=== PATIENT | female | born 1970 | race American Indian/Alaskan Native ===

== ENCOUNTER 2018-03-20 08:07 | Emergency (ER) | payer MEDICAID ==
[2018-03-20 08:19] VITALS: BMI 23.2
[2018-03-20 08:20] VITALS: RESP 18
--- NOTE | 2018-03-20 08:42 | ED PDOC ---
Arrival/HPI - General Chief Complaint: Chest Pain Time Seen by Provider: 03/20/18 08:08 Historian: Patient - History of Present Illness Narrative History of Present Illness (Text): 03/20/18 08:39 Patient is a 48 yo female, past medical history of hypertension, asthma, smoking , "enlarged heart", presents to the Emergency Department complaining of "cold" for "one month" which she reports is sensation of cough, congestion and shortness of breath. States for two weeks she has been experiencing left sided back and chest pain, daily. Denies rash. Denies urinary symptoms. States pain is "like a charley horse" and worse with deep breaths. Also states she feels short of breath with any exertion over the past several months. Denies leg pain or swelling. Denies hemoptysis. Denies nausea or vomiting. Denies palpitations. Denies lightheadedness or dizziness. Time/Duration: > week Past Medical History - Infectious Disease Hx of Infectious Diseases: None - Cardiac Hx Heart Murmur: Yes Hx Hypertension: Yes Hx Mitral Valve Prolapse: Yes - Pulmonary Hx Asthma: Yes - Psychiatric Hx Substance Use: No - Surgical History Hx Dilation and Curettage: Yes (x2) Hx Tubal Ligation: Yes Family/Social History Family/Social History: Unknown Family HX Smoking Status: Current Some Days Smoker Hx Alcohol Use: No Hx Substance Use: No Allergies/Home Meds Allergies/Adverse Reactions: Allergies No Known Allergies Allergy (Unverified 03/20/18 08:36) Review of Systems - Review of Systems Constitutional: Fatigue. absent: Fevers Eyes: absent: Vision Changes ENT: absent: Hearing Changes Respiratory: SOB, Cough, Sputum, Wheezing Cardiovascular: Chest Pain, FUCHS. absent: Palpitations, Edema, Calf Pain, Orthopnea Gastrointestinal: absent: Abdominal Pain, Nausea, Vomiting Genitourinary Female: absent: Dysuria, Frequency Musculoskeletal: Back Pain. absent: Neck Pain Skin: absent: Rash Neurological: absent: Headache, Dizziness, Focal Weakness Endocrine: absent: Polyuria Hemo/Lymphatic: absent: Easy Bleeding Psychiatric: absent: Depression Physical Exam Vital Signs Reviewed: Yes Vital Signs Temp Pulse Resp BP Pulse Ox 03/20/18 12:26 98.1 F 53 L 18 160/98 H 98 03/20/18 12:25 98.1 F 53 L 18 160/98 H 98 03/20/18 11:45 53 L 18 163/105 H 100 03/20/18 10:18 53 L 18 174/115 H 100 03/20/18 09:06 55 L 189/119 H 03/20/18 08:19 98.4 F 79 18 189/119 H 100 Temperature: Afebrile Blood Pressure: Hypertensive Appearance: Positive for: Well-Appearing, Uncomfortable Pain Distress: Mild Mental Status: Positive for: Alert and Oriented X 3 - Systems Exam Head: Present: Atraumatic Pupils: Present: PERRL Extroacular Muscles: Present: EOMI Mouth: Present: Moist Mucous Membranes Pharnyx: No: ERYTHEMA Neck: Present: Normal Range of Motion. No: Meningeal Signs Respiratory/Chest: Present: Clear to Auscultation, Tender to Palpation. No: Respiratory Distress Cardiovascular: Present: Regular Rate and Rhythm, Murmurs Abdomen: No: Tenderness, Distention Back: Present: Normal Inspection, Paraspinal Tenderness. No: CVA Tenderness Upper Extremity: Present: NORMAL PULSES, Other (pain to dorsum of right hand, no deformity, no wrist pain, FROM pip/dip/mcp joint and wrist). No: Cyanosis, Edema Skin: Present: Warm Psychiatric: Present: Alert, Normal Insight, Normal Concentration Medical Decision Making ED Course and Treatment: 03/20/18 08:46 Patient on initial exam states she has had pain for past 2 weeks. On initial exam, NO wheezing noted, no hypoxia, although hypertensive. She has pain with breathing for several weeks. Denies OCP. Denies calf pain. Denies immobilization or prolonged travel. Ddx asthma, pneumonia, cardiomyopathy, pulmonary embolism, cad, htn. 03/20/18 09:29 Chest X-ray reviewed by radiologist, shows: FINDINGS: LUNGS: No active pulmonary disease. PLEURA: No significant pleural effusion identified, no pneumothorax apparent. CARDIOVASCULAR: Normal. OSSEOUS STRUCTURES: Rightward convexity/ scoliosis VISUALIZED UPPER ABDOMEN: Normal. OTHER FINDINGS: None. IMPRESSION: No active disease. CT ordered as patient with complaints of flank pain, back pain. 03/20/18 10:29 CT of Abdomen/Pelvis reviewed by radiologist, shows: FINDINGS: LOWER THORAX: Unremarkable. LIVER: Unremarkable. No gross lesion or ductal dilatation. GALLBLADDER AND BILE DUCTS: Unremarkable. PANCREAS: Unremarkable. No gross lesion or ductal dilatation. SPLEEN: Unremarkable. ADRENALS: Adrenal limbs appear somewhat thickened-nonspecific mild hyperplasia compatible with this. No suspect adrenal mass appreciated. The paucity of internal body fat limits optimal evaluation. KIDNEYS AND URETERS: . No hydronephrosis. The paucity of internal body fat limits optimal evaluation. No obstructing renal or significantly obstructing ureteral calculus noted. However there are multiple bilateral hemipelvic JS occasions present that are also close proximity with coursing ureters. These ureters do not appear significantly dilated The right retroperitoneal 3 mm calcification may be a calcified gonadal vein. However its relationship to the ureter is problematic. VASCULATURE: Multiple phleboliths present No aortic aneurysm. BOWEL: Stool retention. No obstruction. No gross mural thickening. APPENDIX: What appears to be the appendix is unremarkable. PERITONEUM: Unremarkable. No free fluid. No free air. LYMPH NODES: Unremarkable. No enlarged lymph nodes. BLADDER: Unremarkable. REPRODUCTIVE: Uterus appears prominent. This bilateral adnexal hypodensity more pronounced on the left side. This probably in this age group relates to left ovarian cyst. For this consider pelvic ultrasound [facility] abdominal/transvaginal BONES: No acute fracture. OTHER FINDINGS: None. IMPRESSION: Limited exam given the paucity of internal body fat. No hydronephrosis. No gross hydroureter. Multiple calcifications are present vast majority of these are bleed likely phleboliths. However given their close proximity with courses of the ureters - not of obstructing ureteral calculi cannot be excluded. That on the right is probably a calcified gonadal vein - the clinical history states left flank pain. There are bilateral hemipelvic calcifications present - again these are compatible with phleboliths -however tiny nonobstructing ureteral calculi cannot be excluded given their proximity with the expected courses of the ureters. In the left adnexa there is hypodensity probably relating to left ovarian adnexal cyst perhaps physiologic -this could be relating to patient's pain [facility] clinical correlation is essential. Consider transabdominal transvaginal macro ultrasound for further evaluation Comments: If there still look high concern for urolithiasis, consider follow-up is intravenous enhanced CT urogram. CXR unremarkable. Xray with no acute fracture. Ddimer unremarkable. No wheezing on re-evaluation. I explained to patient limitations of labs and imaging studies. I have recommended admission to the hospital based on history of hypertension, abnormal EKG, and complaints of sob. I explained to patient risks that include but not limited to cardiac disease, cardiomyopathy, lung disease, and stressed not limited to this. She states she has a court date tomorrow and wishes to go home. Risks reviewed with patient in laymen's terms. She expresses understanding of recommendation for admission as well as recommendation for further monitoring. 03/20/18 12:00 The patient declines to have further medical evaluation and treatment and wishes to leave the Emergency Department. This action is against my medical advice to the patient, and with informed refusal. The patient was told that evaluation and treatment are necessary and a full explanation of the rationale was given. The risks of leaving were explained to the patient and include, but are not limited to, worsening of known or currently unknown conditions, permanent disability and from undiagnosed or untreated conditions The patient has the capacity to make this informed decision and understands the clinical situation and my explanation of the risks of leaving. The patient voluntarily accepts these risks, and a signed AMA form documenting our conversation was obtained. The patient was given the opportunity to ask questions and reconsider. The patient was encouraged to return to the Emergency Department at any time for further care. 03/20/18 21:47 - Lab Interpretations Lab Results: 03/20/18 08:25 03/20/18 08:25 Lab Results 03/20/18 09:14: POC Glucose (mg/dL) 76 03/20/18 08:37: Influenza Typ A,B (EIA) Negative for flu a/b 03/20/18 08:25: Urine Color Yellow, Urine Appearance Clear, Urine pH 6.0, Ur Specific [place] 1.025, Urine Protein Negative, Urine Glucose (UA) Negative, Urine Ketones Negative, Urine Blood Negative, Urine Nitrate Negative, Urine Bilirubin Negative, Urine Urobilinogen 0.2, Ur Leukocyte Esterase Negative, Urine HCG, Qual Negative 03/20/18 08:25: Sodium 144, Potassium 4.2, Chloride 109 H, Carbon Dioxide 22, Anion Gap 17, BUN 10, Creatinine 0.9, Est GFR ( Amer) > 60, Est GFR (Non- Af Amer) > 60, Random Glucose 82, Calcium 9.8, Total Bilirubin 0.6, AST 24, ALT 26, Alkaline Phosphatase 64, Lactate Dehydrogenase 389, Total Creatine Kinase 114, Troponin I < 0.01, NT-Pro-B Natriuret Pep 135, Total Protein 7.5, Albumin 4.5, Globulin 3.0, Albumin/Globulin Ratio 1.5 03/20/18 08:25: PT 11.2, INR 0.97, APTT 27.8, D-Dimer, Quantitative < 200 03/20/18 08:25: WBC 6.0, RBC 5.09, Hgb 15.6, Hct 41.9, MCV 82.3, MCH 30.6, MCHC 37.2 H, RDW 15.6 H, Plt Count 277, MPV 10.5, Gran % 50.2, Lymph % (Auto) 38.6 H , [place] % (Auto) 9.6 H, Eos % (Auto) 1.3 L, Baso % (Auto) 0.3, Gran # 2.99, Lymph # (Auto) 2.3, [place] # (Auto) 0.6, Eos # (Auto) 0.1, Baso # (Auto) 0.02 - RAD Interpretation Radiology Orders: 03/20/18 08:37 CHEST PORTABLE [RAD] Stat 03/20/18 09:10 HAND RIGHT 3 VIEWS [RAD] Stat 03/20/18 09:46 ABD & PELVIS W/O PO OR IV CONT [CT] Stat Recep: Radiologist - Medication Orders Current Medication Orders: Discontinued Medications Clonidine HCl (Catapres) 0.1 mg PO ONCE STA Stop: 03/20/18 08:48 Last Admin: 03/20/18 09:06 Dose: 0.1 mg MAR Pulse and Blood Pressure Document 03/20/18 09:06 [facility] (Rec: 03/20/18 09:09 [facility] [id number]) Pulse Pulse Rate (60-90) 55 Blood Pressure Blood Pressure (100/60-150/90) 189/119 Ibuprofen (Motrin Tab) 400 mg PO STAT STA Stop: 03/20/18 09:52 Last Admin: 03/20/18 10:15 Dose: 400 mg MAR Pain/Vitals Document 03/20/18 10:15 [facility] (Rec: 03/20/18 10:15 [facility] [id number]) Pain Reassessment Is This A Pain ReAssessment? No Sleep Is patient sleeping during reassessment? No Presence of Pain Presence of Pain Yes Pain Scale Used Pain Scale Used Numeric Location Left, Right or Bilateral Right Pain Location Body Site Wrist Intensity 7 Disposition/Present on Arrival - Present on Arrival Any Indicators Present on Arrival: No History of DVT/PE: No History of Uncontrolled Diabetes: No Urinary Catheter: No History of Decub. Ulcer: No History Surgical Site Infection Following: None - Disposition Have Diagnosis and Disposition been Completed?: Yes Diagnosis: Chest pain, Dyspnea, Hand pain, Back pain Disposition: AGAINST MEDICAL ADVICE Disposition Time: 12:20 Patient Plan: Discharge Condition: GOOD Discharge Instructions (ExitCare): Chest Pain (ED) Forms: [facility] (Bengali)
[2018-03-20 09:15] LABS: BASO # 0.02 K/mm3 (0.0-2.0); BASO % 0.3 % (0.0-3.0); EOS # 0.1 (0.0-0.7); EOS % 1.3 % (1.5-5.0); GRAN # 2.99 (1.4-6.5); GRAN % 50.2 % (50.0-68.0); HEMOGLOBIN 15.6 g/dL (12.0-16.0); LYMPH # 2.3 (1.2-3.4); LYMPH % 38.6 % (22.0-35.0); MEAN CELL VOLUME 82.3 fl (80.0-105.0); MEAN CORPUSCULAR HEMOGLOBIN 30.6 pg (25.0-35.0); MEAN CORPUSCULAR HGB CONC 37.2 g/dl (31.0-37.0); MEAN PLATELET VOLUME 10.5 fl (7.0-11.0); MONO # 0.6 (0.1-0.6); MONO % 9.6 % (1.0-6.0); RBC 5.09 10^6/uL (3.5-6.1); RED CELL DISTRIBUTION WIDTH 15.6 % (11.5-14.5)
[2018-03-20 09:19] LABS: URINE BILIRUBIN NEGATIVE (NEGATIVE); URINE BLOOD NEGATIVE (NEGATIVE); URINE GLUCOSE (UA) NEGATIVE (NEGATIVE); URINE LEUKOCYTE ESTERASE NEGATIVE Leu/uL (NEGATIVE); URINE PROTEIN NEGATIVE mg/dL (<30 mg/dL); URINE UROBILINOGEN 0.2 E.U./dL (<1 E.U./dL)
--- NOTE | 2018-03-20 09:19 | RAD ---
HISTORY: chest pain COMPARISON: No prior. FINDINGS: LUNGS: No active pulmonary disease. PLEURA: No significant pleural effusion identified, no pneumothorax apparent. CARDIOVASCULAR: Normal. OSSEOUS STRUCTURES: Rightward convexity/ scoliosis VISUALIZED UPPER ABDOMEN: Normal. OTHER FINDINGS: None. IMPRESSION: No active disease.
[2018-03-20 09:20] LABS: URINE APPEARANCE CLEAR (CLEAR); URINE COLOR YELLOW (YELLOW)
[2018-03-20 09:23] LABS: HCG,QUALITATIVE URINE NEGATIVE (NEGATIVE)
[2018-03-20 09:25] LABS: ALB/GLOB RATIO 1.5 (1.1-1.8); ALBUMIN 4.5 g/dL (3.0-4.8); ALT/SGPT 26 U/L (7-56); AST/SGOT 24 U/L (14-36); BLOOD UREA NITROGEN 10 mg/dL (7-21); CALCIUM 9.8 mg/dL (8.4-10.5); GFR AFRICAN-AMERICAN > 60; GFR NON-AFRICAN AMERICAN > 60
[2018-03-20 09:36] LABS: B-TYPE NATRIURETIC PEPTIDE 135 pg/mL (0-450); TROPONIN I < 0.01 ng/mL
[2018-03-20 09:40] LABS: D DIMER < 200 ng/mL (0-243); INR 0.97 (0.93-1.08); PARTIAL THROMBOPLASTIN TIME 27.8 Seconds (25.1-36.5); PROTHROMBIN TIME 11.2 SECONDS (9.4-12.5)
[2018-03-20 10:19] VITALS: PULSE 53
--- NOTE | 2018-03-20 10:25 | CT ---
PROCEDURE: CT Abdomen and Pelvis without intravenous contrast HISTORY: left flank pain COMPARISON: None. TECHNIQUE: Technique. Contrast dose: None Radiation dose: Total exam DLP = 225 mGy-cm. This CT exam was performed using one or more of the following dose reduction techniques: Automated exposure control, adjustment of the mA and/or kV according to patient size, and/or use of iterative reconstruction technique. FINDINGS: LOWER THORAX: Unremarkable. LIVER: Unremarkable. No gross lesion or ductal dilatation. GALLBLADDER AND BILE DUCTS: Unremarkable. PANCREAS: Unremarkable. No gross lesion or ductal dilatation. SPLEEN: Unremarkable. ADRENALS: Adrenal limbs appear somewhat thickened-nonspecific mild hyperplasia compatible with this. No suspect adrenal mass appreciated. The paucity of internal body fat limits optimal evaluation. KIDNEYS AND URETERS: . No hydronephrosis. The paucity of internal body fat limits optimal evaluation. No obstructing renal or significantly obstructing ureteral calculus noted. However there are multiple bilateral hemipelvic JS occasions present that are also close proximity with coursing ureters. These ureters do not appear significantly dilated The right retroperitoneal 3 mm calcification may be a calcified gonadal vein. However its relationship to the ureter is problematic. VASCULATURE: Multiple phleboliths present No aortic aneurysm. BOWEL: Stool retention. No obstruction. No gross mural thickening. APPENDIX: What appears to be the appendix is unremarkable. PERITONEUM: Unremarkable. No free fluid. No free air. LYMPH NODES: Unremarkable. No enlarged lymph nodes. BLADDER: Unremarkable. REPRODUCTIVE: Uterus appears prominent. This bilateral adnexal hypodensity more pronounced on the left side. This probably in this age group relates to left ovarian cyst. For this consider pelvic ultrasound [facility] abdominal/transvaginal BONES: No acute fracture. OTHER FINDINGS: None. IMPRESSION: Limited exam given the paucity of internal body fat. No hydronephrosis. No gross hydroureter. Multiple calcifications are present vast majority of these are bleed likely phleboliths. However given their close proximity with courses of the ureters - not of obstructing ureteral calculi cannot be excluded. That on the right is probably a calcified gonadal vein - the clinical history states left flank pain. There are bilateral hemipelvic calcifications present - again these are compatible with phleboliths -however tiny nonobstructing ureteral calculi cannot be excluded given their proximity with the expected courses of the ureters. In the left adnexa there is hypodensity probably relating to left ovarian adnexal cyst perhaps physiologic -this could be relating to patient's pain [facility] clinical correlation is essential. Consider transabdominal transvaginal macro ultrasound for further evaluation Comments: If there still look high concern for urolithiasis, consider follow-up is intravenous enhanced CT urogram.
[2018-03-20 12:26] VITALS: BP 160/98; TEMP 98.1; O2SAT 98
--- NOTE | 2018-03-20 12:38 | RAD ---
PROCEDURE: Right Hand Radiographs.z HISTORY: right hand pain COMPARISON: None. FINDINGS: BONES: No fracture JOINTS: Mild arthrosis 1st carpal metacarpal to lesser extent 1st metacarpal phalangeal. Lesser degenerative changes each DIP joint SOFT TISSUES: Normal. OTHER FINDINGS: None. IMPRESSION: Arthrosis
--- NOTE | 2018-03-20 16:59 | CARD ---
APPROVED REPORT EKG Measurement Heart [id number] <Conclusion> Normal sinus rhythm Possible Left atrial enlargement Septal infarct, age undetermined Abnormal ECG
== END 2018-03-20 12:26 | disposition left against medical advice (07) ==
LOC: ED 08:07
DX: R07.9 Chest pain, unspecified (principal); R06.00 Dyspnea, unspecified; M54.9 Dorsalgia, unspecified; M79.641 Pain in right hand; I10 Essential (primary) hypertension; J45.909 Unspecified asthma, uncomplicated; F17.210 Nicotine dependence, cigarettes, uncomplicated